=== PATIENT | female | born 1985 | race Caucasian/White ===

== ENCOUNTER 2017-08-22 02:54 | Emergency (ER) | payer SELFPAY ==
[2017-08-22] MEDS ORDERED: OXYCODONE-ACETAMINOPHEN 5-325 MG TABLET PO ONE (03:21)
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
--- NOTE | 2017-08-22 04:28 | RADIOLOGY REPORT (SQ) ---
EXAM DESCRIPTION: SHOULDER LEFT 2 OR MORE VIEWS; HUMERUS LEFT COMPLETED DATE/TIME: 08/22/2017 4:17 am REASON FOR STUDY: fall COMPARISON: None. NUMBER OF VIEWS: Four views. TECHNIQUE: Frontal and Y view images acquired of the left shoulder. Two views of the left humerus acquired. LIMITATIONS: None. FINDINGS: MINERALIZATION: Normal. BONES: There is a minimally displaced fracture at the greater tuberosity of the left humerus. JOINTS: No dislocation. VISUALIZED LUNGS AND RIBS: No pneumothorax. No displaced rib fracture. SOFT TISSUES: No radiopaque foreign body. IMPRESSION: Minimally displaced fracture at the greater tuberosity of the left humerus. TECHNICAL DOCUMENTATION: JOB ID: [id number] 2010 [employer]- All Rights Reserved
--- NOTE | 2017-08-22 04:28 | RADIOLOGY REPORT (SQ) ---
EXAM DESCRIPTION: SHOULDER LEFT 2 OR MORE VIEWS; HUMERUS LEFT COMPLETED DATE/TIME: 08/22/2017 4:17 am REASON FOR STUDY: fall COMPARISON: None. NUMBER OF VIEWS: Four views. TECHNIQUE: Frontal and Y view images acquired of the left shoulder. Two views of the left humerus acquired. LIMITATIONS: None. FINDINGS: MINERALIZATION: Normal. BONES: There is a minimally displaced fracture at the greater tuberosity of the left humerus. JOINTS: No dislocation. VISUALIZED LUNGS AND RIBS: No pneumothorax. No displaced rib fracture. SOFT TISSUES: No radiopaque foreign body. IMPRESSION: Minimally displaced fracture at the greater tuberosity of the left humerus. TECHNICAL DOCUMENTATION: JOB ID: [id number] 2010 [employer]- All Rights Reserved
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
[2017-08-22 05:34] VITALS: BP 135/84
== END 2017-08-22 05:18 | disposition home or self-care (01) ==
LOC: ER 02:54
DX: S42.295A Other nondisplaced fracture of upper end of left humerus, initial encounter for closed fracture (principal); R07.81 Pleurodynia; M25.512 Pain in left shoulder; V93.39XA Fall on board unspecified watercraft, initial encounter
CPT/HCPCS: 99283; 73060; 71101; 73030; L3650